=== PATIENT | male | born 1980 | race Caucasian/White ===

== ENCOUNTER 2023-07-23 09:05 | Observation (INO) | payer OTHER ==
[2023-07-23] MEDS ORDERED: Digoxin 0.5 MG/2 ML AMP ONE (09:34)
[2023-07-23] MEDS ORDERED: dilTIAZem 25 MG/5 ML VIAL ONE (09:34)
[2023-07-23 09:42] LABS: #Basophils 0.2 10x3/uL (0.0-0.2); #Eosinphils 0.3 10x3/uL (0.0-0.5); #Monocytes 1.7 10x3/uL (0.0-1.1); #Neutrophils 7.4 10x3/uL (1.5-8.4); %Basophils 1.4 % (0.0-2.0); %Eosinophils 2.1 % (0.0-6.0); %Lymphocytes 18.3 % (18.0-47.0); %Monocytes 14.4 % (0.0-10.0); %Neutrophils 61.3 % (40.0-75.0); Hematocrit 45.5 % (38.8-50.0); Hemoglobin 16.1 g/dL (13.5-17.5); Mean Corpuscular HGB CONC 35.4 g/dL (32.0-36.0); Mean Corpuscular Hemoglobin 32.1 pg (27.0-33.0); Mean Corpuscular Volume 90.8 fl (81.2-95.1); Mean Platelet Volume 9.1 fl (7.4-10.4); Platelet Count 297 10x3/uL (150-450); RBC Distribution Width 13.3 % (11.5-14.5); Red Blood Cell (RBC) Count 5.01 10x6/uL (4.32-5.72)
[2023-07-23 10:01] LABS: ALT (SGPT) 47 U/L (8-55); AST (SGOT) 34 U/L (5-34); Albumin 4.5 g/dL (3.5-5.0); Alkaline Phosphatase 72 U/L (40-110); Anion Gap 17 mmol/L (10-20); BUN (Urea Nitrogen) 13 mg/dL (8.9-20.6); Bilirubin, Total 0.5 mg/dL (0.2-1.2); Calc. Creatinine Clearance 0 mL/min (70-130); Calcium 9.4 mg/dL (7.8-10.44); Carbon Dioxide 22 mmol/L (22-29); Chloride 103 mmol/L (98-107); Estimated GFR 69; Globulin 3.1 g/dL (2.4-3.5); Glucose 103 mg/dL (70-105); Potassium 3.7 mmol/L (3.5-5.1); Protein, Total 7.6 g/dL (6.0-8.3); Sodium 138 mmol/L (136-145); Troponin I Less than 0.010 ng/mL (< 0.028)
[2023-07-23] MEDS ORDERED: dilTIAZem 125 MG/25 ML SDV ONE (10:57)
[2023-07-23] MEDS ORDERED: Acetaminophen 325 MG TAB PO PRN (10:59)
[2023-07-23] MEDS ORDERED: Senokot S 8.6-50 MG TAB PO PRN (10:59)
[2023-07-23] MEDS ORDERED: HYDROcodone/Acetaminophen 5/325 mg Tablet PO PRN (10:59)
[2023-07-23] MEDS ORDERED: Guaifenesin DM 100-10/5 ML UDCUP PO PRN (10:59)
[2023-07-23] MEDS ORDERED: dilTIAZem 125 MG in Sodium Chloride 0.9% 100 ML IVPB SCH (11:15)
[2023-07-23] MEDS ORDERED: Sodium Chloride 0.9% 1,000 ML IV SCH (11:15)
[2023-07-23 11:49] LABS: Magnesium 2.3 mg/dL (1.6-2.6)
[2023-07-23 13:42] LABS: Amphetamine Not Detected (NotDetected); Barbiturates Screen Not Detected (NotDetected); Benzodiazepine Screen Not Detected (NotDetected); Cocaine Metabolite Screen Not Detected (NotDetected); Methadone Not Detected (NotDetected); Methamphetamine Not Detected (NotDetected); Opiate Screen Not Detected (NotDetected); Oxycodone Screen Not Detected (NotDetected); Phencyclidine (PCP) Not Detected (NotDetected); THC/Cannabinoid Screen Not Detected (NotDetected); Tricyclic Screen Not Detected (NotDetected)
[2023-07-23 14:45] VITALS: BMI 29.3
[2023-07-23] MEDS ORDERED: FLU VACC QS2023-24(6MOS UP)/PF 60 MCG/0.5 ML SYRINGE IM ONE (15:00)
[2023-07-23] MEDS: Metoprolol Tartrate 25 MG TAB PO SCH (20:08)
[2023-07-23] MEDS ORDERED: Zolpidem Tartrate 5 MG TAB PO SCH (21:00)
[2023-07-24 04:44] LABS: #Basophils 0.1 10x3/uL (0.0-0.2); #Eosinphils 0.3 10x3/uL (0.0-0.5); #Neutrophils 5.7 10x3/uL (1.5-8.4); %Basophils 1.5 % (0.0-2.0); %Lymphocytes 20.3 % (18.0-47.0); %Monocytes 10.4 % (0.0-10.0); %Neutrophils 60.1 % (40.0-75.0); Hematocrit 41.3 % (38.8-50.0); Hemoglobin 14.4 g/dL (13.5-17.5); Mean Corpuscular HGB CONC 34.9 g/dL (32.0-36.0); Mean Corpuscular Hemoglobin 31.9 pg (27.0-33.0); Mean Corpuscular Volume 91.6 fl (81.2-95.1); Mean Platelet Volume 9.4 fl (7.4-10.4); Platelet Count 264 10x3/uL (150-450); RBC Distribution Width 13.2 % (11.5-14.5); Red Blood Cell (RBC) Count 4.51 10x6/uL (4.32-5.72); White Blood Cell (WBC) Count 9.5 10x3/uL (3.5-10.5)
[2023-07-24 04:49] LABS: ALT (SGPT) 38 U/L (8-55); AST (SGOT) 26 U/L (5-34); Albumin 3.7 g/dL (3.5-5.0); Alkaline Phosphatase 54 U/L (40-110); Anion Gap 13 mmol/L (10-20); BUN (Urea Nitrogen) 13 mg/dL (8.9-20.6); Bilirubin, Total 0.4 mg/dL (0.2-1.2); Calc. Creatinine Clearance 119 mL/min (70-130); Calcium 8.3 mg/dL (7.8-10.44); Carbon Dioxide 21 mmol/L (22-29); Chloride 105 mmol/L (98-107); Estimated GFR 89; Globulin 2.6 g/dL (2.4-3.5); Glucose 97 mg/dL (70-105); Potassium 3.6 mmol/L (3.5-5.1); Protein, Total 6.3 g/dL (6.0-8.3); Sodium 135 mmol/L (136-145)
[2023-07-24] MEDS: Metoprolol Tartrate 25 MG TAB PO SCH (07:40)
[2023-07-24] MEDS ORDERED: Flecainide 50 MG TAB PO SCH ×2 (08:45→21:00)
[2023-07-24 08:48] VITALS: BP 139/83; TEMP 98.5
[2023-07-24] MEDS ORDERED: Atorvastatin Calcium 20 MG TAB PO SCH (09:00)
[2023-07-24] MEDS ORDERED: Metoprolol Tartrate 5 MG/5 ML VIAL IVP SCH (09:30)
[2023-07-24] MEDS ORDERED: Metoprolol Tartrate 50 MG TAB PO SCH (21:00)
== END 2023-07-24 10:59 | disposition home or self-care (01) ==
LOC: CSHERS 09:05 → INTOOBSV 10:15 → CSHERHOLD 10:15 → CSHICU 14:39
PROVIDERS: ADMIT Hospitalist; ATTEND Internal Medicine
PROC: B246ZZZ Ultrasonography of Right and Left Heart (ICD-10-PCS; principal; 2023-07-23)
DX: I48.0 Paroxysmal atrial fibrillation (principal); I10 Essential (primary) hypertension; E78.5 Hyperlipidemia, unspecified
CPT/HCPCS: 80053; 80306; 83735; 84443; 84484; 85025; 93005; 93010; 93306; 96372; 96375; 96376; G0378; J1160; J1650; J3490

== ENCOUNTER 2024-08-22 06:45 | Emergency (ER) | payer OTHER ==
[2024-08-22] MEDS ORDERED: Nitroglycerin 2% Ointment 1 INCH/1 GM Packet ONE (07:23)
[2024-08-22] MEDS ORDERED: Aspirin 81 mg Enteric Coated Tablet ONE (07:24)
[2024-08-22] MEDS ORDERED: Pantoprazole 40 MG VIAL ONE (07:24)
[2024-08-22 07:39] LABS: #Basophils 0.05 10x3/uL (0.0-0.2); #Eosinophils 0.34 10x3/uL (0.0-0.5); #Monocytes 0.78 10x3/uL (0.0-1.1); #Neutrophils 5.57 10x3/uL (1.5-8.4); %Basophils 0.6 % (0.0-2.0); %Eosinophils 4.2 % (0.0-6.0); %Lymphocytes 15.7 % (18.0-47.0); %Monocytes 9.7 % (0.0-10.0); %Neutrophils 69.1 % (40.0-75.0); Hematocrit 45.4 % (38.8-50.0); Hemoglobin 15.7 g/dL (13.5-17.5); Mean Corpuscular HGB CONC 34.6 g/dL (32.0-36.0); Mean Corpuscular Hemoglobin 32.2 pg (27.0-33.0); Mean Platelet Volume 9.3 fL (7.4-10.4); Platelet Count 261 10x3/uL (150-450); RBC Distribution Width 12.7 % (11.5-14.5); Red Blood Cell (RBC) Count 4.88 10x6/uL (4.32-5.72); White Blood Cell (WBC) Count 8.1 10x3/uL (3.5-10.5)
[2024-08-22 07:57] LABS: ALT (SGPT) 47 U/L (8-55); AST (SGOT) 33 U/L (5-34); Albumin 3.8 g/dL (3.5-5.0); Alkaline Phosphatase 59 U/L (40-110); Anion Gap 15 mmol/L (10-20); BUN (Urea Nitrogen) 11 mg/dL (8.9-20.6); Bilirubin, Total 0.7 mg/dL (0.2-1.2); Calc. Creatinine Clearance 0 mL/min (70-130); Calcium 8.7 mg/dL (7.8-10.44); Carbon Dioxide 20 mmol/L (22-29); Chloride 105 mmol/L (98-107); Estimated GFR 77; Globulin 2.9 g/dL (2.4-3.5); Glucose 98 mg/dL (70-105); Potassium 3.8 mmol/L (3.5-5.1); Protein, Total 6.7 g/dL (6.0-8.3); Sodium 136 mmol/L (136-145)
[2024-08-22 08:03] LABS: Troponin I 0.016 ng/mL (< 0.028)
[2024-08-22] MEDS ORDERED: Acetaminophen 500 MG TAB ONE (08:08)
[2024-08-22] MEDS ORDERED: Mag-Al 1200 mg/1200 mg/30 ML UDCUP ONE (09:34)
[2024-08-22] MEDS ORDERED: Lidocaine Viscous Sol 2% 15 ml UD Cup ONE (09:34)
[2024-08-22 10:04] LABS: Troponin I Less than 0.010 ng/mL (< 0.028)
[2024-08-22] MEDS ORDERED: Heparin 10,000 UNITS/ 10 ML VIAL ONE (10:19)
[2024-08-22] MEDS ORDERED: Heparin 25,000 units/D5W 500 ML ONE (10:19)
[2024-08-22] MEDS ORDERED: Morphine 4 MG/ML VIAL ONE ×2 (10:20→11:49)
== END 2024-08-22 12:35 ==
LOC: CSHERS 06:45
DX: R07.89 Other chest pain (principal); I48.91 Unspecified atrial fibrillation; E78.5 Hyperlipidemia, unspecified; F17.290 Nicotine dependence, other tobacco product, uncomplicated
CPT/HCPCS: 36415; 71045; 80053; 84484; 85025; 85730; 93005; 93306; 96365; 96366; 96375; 96376; J1644; J2272; J2470